=== PATIENT | male | born 1980 | race Caucasian/White ===

== ENCOUNTER 2021-02-24 17:41 | Emergency (ER) | payer BC, OTHER ==
[~2021-02-24] VITALS: Ht 188 cm; Wt 128.6 kg
[2021-02-24] MEDS ORDERED: MECLIZINE 12.5 MG TABLET. PO ONE (18:00)
[2021-02-24] MEDS ORDERED: ONDANSETRON PF 4 MG/2 ML VIAL. IVP ONE (18:00)
[2021-02-24] MEDS ORDERED: IV NORMAL SALINE 1,000ML 1,000 ML IV ONE (18:00)
[2021-02-24 18:27] LABS: BASO # 0.1 x10^3/uL (0.0-0.2); BASO % 1 % (0-3); EOS # 0.1 x10^3/uL (0.0-0.7); EOS % 1 % (0-3); HEMATOCRIT 41.3 % (39.0-53.0); HEMOGLOBIN 14.6 g/dL (13.0-17.5); LYMPH # 1.2 x10^3/uL (1.0-4.8); LYMPH % 13 % (24-48); MEAN CORPUSCULAR HEMOGLOBIN 31 pg (25-35); MEAN CORPUSCULAR HGB CONC 35 g/dL (31-37); MEAN CORPUSCULAR VOLUME 87 fL (79-100); MONO # 0.8 x10^3/uL (0.0-1.1); MONO % 8 % (0-9); NEUT # 7.1 x10^3uL (1.8-7.7); NEUT % 77 % (31-73); PLATELET COUNT 172 x10^3/uL (140-400); RED BLOOD COUNT 4.73 x10^6/uL (4.30-5.70); RED CELL DISTRIBUTION WIDTH 13.7 % (11.5-14.5); WHITE BLOOD COUNT 9.3 x10^3/uL (4.0-11.0)
[2021-02-24 18:41] LABS: CALCIUM 8.5 mg/dL (8.5-10.1); CREATININE 0.8 mg/dL (0.7-1.3); GFR 107.1; POTASSIUM 4.1 mmol/L (3.5-5.1)
[2021-02-24 18:47] LABS: ALBUMIN 3.8 g/dL (3.4-5.0); ALBUMIN/GLOBULIN RATIO 1.3 (1.0-1.7); MAGNESIUM 2.2 mg/dL (1.8-2.4); TOTAL BILIRUBIN 0.9 mg/dL (0.2-1.0); TOTAL PROTEIN 6.7 g/dL (6.4-8.2)
--- NOTE | 2021-02-24 18:48 | RAD ---
PQRS Compliance Statement: One or more of the following individualized dose reduction techniques were utilized for this examinat ion: 1. Automated exposure control 2. Adjustment of the mA and/or kV according to patient size 3. Use of iterative reconstruction technique CT head and maxillofacial without contrast 02/24/2021 5:59 PM INDICATION: Headache, ear pain COMPARISON: None available TECHNIQUE: Multiple axial CT images of the head were obtained from skull base through the vertex with out intravenous contrast. Multiple axial CT images of the maxillofacial structures were obtained with out intravenous contrast. Coronal and sagittal reformats are provided. FINDINGS: Head and maxillofacial: Ventricles, sulci and basal cisterns are within normal limits. There is no hydrocephalus. Downing-white matter differentiation is normal. There is no acute intracranial hemorrhage. There is no mass, mass e ffect or midline shift. Posterior fossa is normal in appearance. Osseous orbits are intact. Globes are spherical and contour. There is no lens dislocation. Extraocula r muscles are intact. No intraconal or extraconal mass is identified. Skull base is intact. Nasal bones are intact. Nasal septum is predominantly midline. Paranasal sinuses are well aerated. No acute fracture of the paranasal sinuses is identified. Pterygoid plates are intact. Temporomandibular joints are well aligned. Mastoid air cells are well aerated. Middle ear cavities ar e well aerated. Visualized nasopharynx and oropharynx are intact. Soft tissues are normal. Maxilla and mandible are intact. Visualized dentition appear normal. Alignment of the upper cervical spine is normal. Skull base is intact. Craniocervical junction is nor mal in appearance. Atlantoaxial articulation is normal. IMPRESSION: 1. No acute intracranial hemorrhage. 2. No acute fracture of the maxillofacial structures. Electronically signed by: Christie Choi MD (02/24/2021 6:45 PM) [facility]
--- NOTE | 2021-02-24 18:57 | PHYS DOC ---
Past History Past Surgical History: No Surgical History (BINU ELIZONDO APRN) Alcohol Use: None (BINU ELIZONDO APRN) Adult General Chief Complaint Chief Complaint: HEADACHE HPI HPI Patient is a 41-year-old male patient with no significant medical problems who presents to the ED today complaining of a sharp 9 out of 10 ear pain and headache, symptoms of been going on intermittently for 2 weeks. Patient is also complaining of dizziness worse on movement. Patient states symptoms began after he got to [place] 2 weeks ago by car. He states he was seen in the hospital there and was given meclizine and Ativan which helped with symptoms. He states he came back to [place] and was seen at urgent care a week and was noted to have a right ear infection. He states he was put on antibiotics which he is still taking. He states he has continued to have symptoms. Reports occasional nausea, vomiting. Denies any fever. (BINU ELIZONDO APRN) Review of Systems Review of Systems Constitutional: Denies fever or chills [] Eyes: Denies change in visual acuity, redness, or eye pain [] HENT: Reports right ear pain. Denies nasal congestion or sore throat [] Respiratory: Denies cough or shortness of breath [] Cardiovascular: No additional information not addressed in HPI [] GI: Reports nausea and vomiting. Denies abdominal pain, bloody stools or diarrhea [] : Denies dysuria or hematuria [] Musculoskeletal: Denies back pain or joint pain [] Integument: Denies rash or skin lesions [] Neurologic: Reports headache, dizziness, denies focal weakness or sensory changes [] All other systems were reviewed and found to be within normal limits, except as documented in this note. (BINU ELIZONDO APRN) Current Medications Current Medications Current Medications Medications (Trade) Dose Ordered Sig/Tanner Start Time Stop Time Status Last Admin Dose Admin Lorazepam (Ativan Inj) 1 mg 1X ONCE 02/24/21 18:00 02/24/21 18:01 DC 02/24/21 18:46 1 MG Meclizine HCl (Antivert) 12.5 mg 1X ONCE 02/24/21 18:00 02/24/21 18:01 DC 02/24/21 18:46 12.5 MG Ondansetron HCl (Zofran) 4 mg 1X ONCE 02/24/21 18:00 02/24/21 18:01 DC 02/24/21 18:46 4 MG Sodium Chloride 1,000 ml @ 1,000 mls/hr 1X ONCE 02/24/21 18:00 02/24/21 18:59 02/24/21 18:46 1,000 MLS/HR (BINU ELIZONDO FLIGHT ATTENDANT/INFLIGHT MANAGER) Allergies Allergies Allergies Coded Allergies Type Severity Reaction Last Updated Verified No Known Drug Allergies 02/24/21 No (BINU ELIZONDO FLIGHT ATTENDANT/INFLIGHT MANAGER) Physical Exam Physical Exam Constitutional: Well developed, well nourished, no acute distress, non-toxic appearance. [] HENT: Normocephalic, atraumatic, bilateral external ears normal, oropharynx moist, no oral exudates, nose normal. Bilateral TM with slight erythema but not enough to be on antibiotics Eyes: PERRLA, EOMI, conjunctiva normal, no discharge. [] Neck: Normal range of motion, no tenderness, supple, no stridor. [] Cardiovascular:Heart rate regular rhythm, no murmur [] Lungs & Thorax: Bilateral breath sounds clear to auscultation [] Abdomen: Bowel sounds normal, soft, no tenderness, no masses, no pulsatile masses. [] Skin: Warm, dry, no erythema, no rash. [] Back: No tenderness, no CVA tenderness. [] Extremities: No tenderness, no cyanosis, no clubbing, ROM intact, no edema. [] Neurologic: Alert and oriented X 3, normal motor function, normal sensory function, no focal deficits noted. Cranial nerves II through XII intact Psychologic: Affect normal, judgement normal, mood normal. [] (BINU ELIZONDO FLIGHT ATTENDANT/INFLIGHT MANAGER) Current Patient Data Vital Signs Vital Signs Date Time Temp Pulse Resp B/P (MAP) Pulse Ox O2 Delivery O2 Flow Rate FiO2 02/24/21 17:44 98.4 86 16 161/84 98 Room Air Lab Results Laboratory Tests Test 02/24/21 18:12 White Blood Count 9.3 x10^3/uL (4.0-11.0) Red Blood Count 4.73 x10^6/uL (4.30-5.70) Hemoglobin 14.6 g/dL (13.0-17.5) Hematocrit 41.3 % (39.0-53.0) Mean Corpuscular Volume 87 fL (79-100) Mean Corpuscular Hemoglobin 31 pg (25-35) Mean Corpuscular Hemoglobin Concent 35 g/dL (31-37) Red Cell Distribution Width 13.7 % (11.5-14.5) Platelet Count 172 x10^3/uL (140-400) Neutrophils (%) (Auto) 77 % (31-73) H Lymphocytes (%) (Auto) 13 % (24-48) L Monocytes (%) (Auto) 8 % (0-9) Eosinophils (%) (Auto) 1 % (0-3) Basophils (%) (Auto) 1 % (0-3) Neutrophils # (Auto) 7.1 x10^3uL (1.8-7.7) Lymphocytes # (Auto) 1.2 x10^3/uL (1.0-4.8) Monocytes # (Auto) 0.8 x10^3/uL (0.0-1.1) Eosinophils # (Auto) 0.1 x10^3/uL (0.0-0.7) Basophils # (Auto) 0.1 x10^3/uL (0.0-0.2) Sodium Level 142 mmol/L (136-145) Potassium Level 4.1 mmol/L (3.5-5.1) Chloride Level 107 mmol/L (98-107) Carbon Dioxide Level 26 mmol/L (21-32) Anion Gap 9 (6-14) Blood Urea Nitrogen 12 mg/dL (8-26) Creatinine 0.8 mg/dL (0.7-1.3) Estimated GFR (Cockcroft-Gault) 107.1 BUN/Creatinine Ratio 15 (6-20) Glucose Level 105 mg/dL (70-99) H Calcium Level 8.5 mg/dL (8.5-10.1) Magnesium Level 2.2 mg/dL (1.8-2.4) Total Bilirubin 0.9 mg/dL (0.2-1.0) Aspartate Amino Transferase (AST) 20 U/L (15-37) Alanine Aminotransferase (ALT) 28 U/L (16-63) Alkaline Phosphatase 88 U/L (46-116) Total Protein 6.7 g/dL (6.4-8.2) Albumin 3.8 g/dL (3.4-5.0) Albumin/Globulin Ratio 1.3 (1.0-1.7) (BINU ELIZONDO APRN) EKG EKG [] (BINU ELIZONDO APRN) Radiology/Procedures Radiology/Procedures []PROCEDURE: CT HEAD AND MAXILLOFACIAL [facility] Compliance Statement: One or more of the following individualized dose reduction techniques were utilized for this examination: 1. Automated exposure control 2. Adjustment of the mA and/or kV according to patient size 3. Use of iterative reconstruction technique CT head and maxillofacial without contrast 02/24/2021 5:59 PM INDICATION: Headache, ear pain COMPARISON: None available TECHNIQUE: Multiple axial CT images of the head were obtained from skull base through the vertex without intravenous contrast. Multiple axial CT images of the maxillofacial structures were obtained without intravenous contrast. Coronal and sagittal reformats are provided. FINDINGS: Head and maxillofacial: Ventricles, sulci and basal cisterns are within normal limits. There is no hydrocephalus. Downing-white matter differentiation is normal. There is no acute intracranial hemorrhage. There is no mass, mass effect or midline shift. Posterior fossa is normal in appearance. Osseous orbits are intact. Globes are spherical and contour. There is no lens dislocation. Extraocular muscles are intact. No intraconal or extraconal mass is identified. Skull base is intact. Nasal bones are intact. Nasal septum is predominantly midline. Paranasal sinuses are well aerated. No acute fracture of the paranasal sinuses is identified. Pterygoid plates are intact. Temporomandibular joints are well aligned. Mastoid air cells are well aerated. Middle ear cavities are well aerated. Visualized nasopharynx and oropharynx are intact. Soft tissues are normal. Maxilla and mandible are intact. Visualized dentition appear normal. Alignment of the upper cervical spine is normal. Skull base is intact. Craniocervical junction is normal in appearance. Atlantoaxial articulation is normal. IMPRESSION: 1. No acute intracranial hemorrhage. 2. No acute fracture of the maxillofacial structures. Electronically signed by: Rocio García MD (02/24/2021 6:45 PM) [facility] DICTATED AND SIGNED BY: ROCIO GARCÍA MD DATE: 02/24/21 1840 CC: GRIS WARD; BINU ELIZONDO APRN ~MTH0 0 (BINU ELIZONDO APRN) Heart Score C/O Chest Pain: N/A Risk Factors: Risk Factors: DM, Current or recent (<one month) smoker, HTN, HLP, family history of CAD, obesity. Risk Scores: Risk Factors: DM, Current or recent (<one month) smoker, HTN, HLP, family history of CAD, obesity. (BINU ELIZONDO APRN) Course & Med Decision Making Course & Med Decision Making Pertinent Labs and Imaging studies reviewed. (See chart for details) This is a 41-year-old male patient presenting to the ED today complaining of right ear pain, headache dizziness with nausea and vomiting, symptoms of been going on for 2 weeks. Patient has been seen in a different ED as well as urgent care. Requesting CT of the head and maxillofacial which were done are negative. Labs are negative for any acute findings. Patient feeling better after IV fluids, Toradol, Decadron, Ativan and meclizine. Discharged home, recommended following up with ENT and neurologist. (BINU ELIZONDO APRN) Dragon Disclaimer Dragon Disclaimer This electronic medical record was generated, in whole or in part, using a voice recognition dictation system. (BINU ELIZONDO APRN) Departure Departure: Impression: Primary Impression: Vertigo Additional Impressions: Head ache Otalgia of right ear Disposition: HOME / SELF CARE / HOMELESS Condition: STABLE Referrals: GRIS WARD (PCP) follow up next week Patient Instructions: Headache, FAQs, Otalgia, Vertigo, [id number] Additional Instructions: You were evaluated in the emergency room. We highly recommend you follow-up with the neurologist and ENT provided. Please change positions slowly. Push fluids. Dr. Catie Calderón [facility] [address], [place] [address] Dr. Salas [address] [facility] [address], [place] [address] Scripts Ondansetron (ONDANSETRON ODT) 4 Mg Tab.rapdis 1 TAB PO PRN Q6-8HRS, #16 TAB Prov: BINU ELIZONDO APRN 02/24/21 Meclizine Hcl (MECLIZINE HCL) 25 Mg Tablet 1 TAB PO TID, #30 TAB Prov: BINU ELIZONDO THEO 02/24/21 Attending Signature Attending Signature I have reviewed the PA/VENDOR ANALYST's note and plan of care. I was available for consultation as needed during the patient's visit in the emergency department. I agree with the clinical impression, plan, and disposition. (ROSALINE GILL DO) Problem Qualifiers Additional Impressions: Head ache Headache type: unspecified Headache chronicity pattern: acute headache Intractability: not intractable Qualified Codes: R51.9 - Headache, unspecified BINU ELIZONDO THEO Feb 24, 2021 18:57 ROSALINE GILL DO Feb 24, 2021 20:24
[2021-02-24] MEDS ORDERED: KETOROLAC 30 MG/ML VIAL. IVP ONE (19:15)
[2021-02-24] MEDS ORDERED: DEXAMETHASONE SOD PHOS 10 MG/ML VIAL. IVP ONE (19:15)
[2021-02-24] MEDS ORDERED: MECL-75 PO (19:29)
[2021-02-24] MEDS ORDERED: ONDA4TAB12 PO (19:29)
[2021-02-24 19:44] VITALS: BP 146/84
== END 2021-02-24 20:11 | disposition home or self-care (01) ==
LOC: ER 17:41
DX: R42 Dizziness and giddiness (principal); R51.9 Headache, unspecified; H92.01 Otalgia, right ear; R11.2 Nausea with vomiting, unspecified
CPT/HCPCS: 36415; 70450; 70486; 80053; 83735; 85025; 96361; 96374; 96375; 99284; J1100; J1885; J2060; J2405; J7030